=== PATIENT | female | born 1985 | race Two or more races ===

== ENCOUNTER 2018-10-31 11:46 | Emergency (ER) | payer MEDICAID, OTHER ==
[~2018-10-31] VITALS: Ht 160 cm; Wt 61.7 kg
[2018-10-31 12:46] LABS: Urine Bacteria FEW /hpf (None Seen); Urine Blood Negative /uL (Negative); Urine Mucus FEW (None Seen); Urine Specific Gravity 1.022 (1.001-1.035); Urine Sperm PRESENT /hpf (None Seen); Urine WBC 4 /hpf (0 - 5)
[2018-10-31 13:40] LABS: Basophils # (auto) 0 uL; Basophils % (auto) 0.6 % (0.0-2.0); Eosinophils # (auto) 0.1 uL; Eosinophils % (auto) 1.5 % (0.0-7.0); Hematocrit 40.2 % (36.0-46.0); Hemoglobin 13.8 g/dL (12.2-16.2); Lymphocytes # (auto) 2.8 uL; Lymphocytes % (auto) 37.9 % (10.0-50.0); Mean Corpuscular Hemoglobin 31.2 pg (28.0-32.0); Mean Corpuscular Hgb Conc. 34.2 g/dL (32.0-36.0); Mean Corpuscular Volume 91.1 fL (80.0-100.0); Monocytes # (auto) 0.4 uL; Neutrophils # (auto) 4.1 uL; Nucleated Red Blood Cells % 0.1 %; Platelet Count (auto) 300 10^3/uL (140-450); Red Blood Cells 4.41 10^6/uL (4.0-5.20); Red Cell Distribution Width 12.6 % (11.8-14.3); White Blood Cell 7.5 10^3/uL (4.4-10.8)
[2018-10-31 14:03] LABS: Alanine Aminotransferase 23 U/L (13-56); Amylase 163 U/L (25-115); Anion Gap 3 (5-15); Blood Urea Nitrogen 13 mg/dL (7-18); Calcium 8.6 mg/dL (8.5-10.1); Carbon Dioxide 27 mmol/L (21-32); Chloride 108 mmol/L (98-107); Glucose 88 mg/dL (74-106); Lipase 177 U/L (73-393); Potassium 4.2 mmol/L (3.5-5.1); Sodium 138 mmol/L (136-145)
[2018-10-31 14:06] LABS: Alkaline Phosphatase 53 U/L (45-117); Aspartate Aminotransferase 13 U/L (15-37); Bilirubin, Total 0.2 mg/dL (0.2-1.0); GFR African American > 60 mL/min; GFR Non-African American > 60 mL/min; Total Protein 7.7 g/dL (6.4-8.2)
[2018-10-31 15:29] VITALS: BP 132/73
[2018-10-31] MEDS ORDERED: ONDANSETRON ODT 4 MG TAB PO ONE (15:45)
[2018-10-31] MEDS ORDERED: KETOROLAC TROMETH 60MG/2ML VIAL IM ONE (15:45)
== END 2018-10-31 17:19 | disposition home or self-care (01) ==
LOC: ER 11:47
DX: N20.0 Calculus of kidney (principal); N39.0 Urinary tract infection, site not specified; R11.0 Nausea
CPT/HCPCS: 36415; 74176; 80053; 81001; 81025; 82150; 83690; 85025; 96372; 99284; J1885; Q0162

== ENCOUNTER 2019-09-02 22:35 | Inpatient (IN) | payer MEDICAID ==
[~2019-09-02] VITALS: Ht 160 cm; Wt 76.7 kg
[2019-09-02] MEDS ORDERED: LACT. RINGERS/OXYTOCIN 20UNITS 1,000 ML IV SCH (23:14)
[2019-09-02] MEDS ORDERED: LACTATED RINGER'S 1,000 ML IV SCH (23:14)
[2019-09-02] MEDS ORDERED: DERMOPLAST 60ML BOTTLE TOP PRN (23:15)
[2019-09-02] MEDS ORDERED: CARBOPROST TROMETHAMINE 250 MCG/1ML VIAL IM PRN (23:15)
[2019-09-02] MEDS ORDERED: METHYLERGONOVINE MALEATE 0.2 MG/ML AMP IM PRN (23:15)
[2019-09-02] MEDS ORDERED: WITCH HAZEL-GLYCERIN PAD TOP PRN (23:15)
[2019-09-02] MEDS ORDERED: PHISODERM TOP SOLN 240ML BTL TOP PRN (23:15)
[2019-09-02] MEDS ORDERED: LIDOCAINE 2%HCL (LOCAL ANESTH.) INJ 20ML MDV ID ONE (23:15)
[2019-09-02] MEDS ORDERED: NALBUPHINE HCL 10 MG/1ml INJECTION IV PRN (23:15)
[2019-09-02 23:57] LABS: Basophils # (auto) 0 uL; Basophils % (auto) 0.6 % (0.0-2.0); Eosinophils # (auto) 0.1 uL; Eosinophils % (auto) 0.9 % (0.0-7.0); Hematocrit 34.4 % (36.0-46.0); Hemoglobin 11.7 g/dL (12.2-16.2); Lymphocytes # (auto) 2.4 uL; Lymphocytes % (auto) 34.5 % (10.0-50.0); Mean Corpuscular Hemoglobin 30.6 pg (28.0-32.0); Mean Corpuscular Hgb Conc. 34.2 g/dL (32.0-36.0); Mean Corpuscular Volume 89.4 fL (80.0-100.0); Monocytes # (auto) 0.5 uL; Monocytes % (auto) 7.8 % (0.0-12.0); Neutrophils % (auto) 56.2 % (37.0-80.0); Nucleated Red Blood Cells % 0.1 %; Platelet Count (auto) 224 10^3/uL (140-450); Red Blood Cells 3.84 10^6/uL (4.0-5.20); Red Cell Distribution Width 14.1 % (11.8-14.3); White Blood Cell 7.1 10^3/uL (4.4-10.8)
[2019-09-03] VITALS (17 sets, daily range): BP systolic 107–138; BP diastolic 61–84
[2019-09-03 00:10] LABS: INR 0.92 (0.9-1.15); Partial Thromboplastin Time 24.9 sec (23.64-32.05)
[2019-09-03 00:11] LABS: Albumin 2.5 g/dL (3.4-5.0); Potassium 4.2 mmol/L (3.5-5.1); Uric Acid 3.7 mg/dL (2.6-6.0)
[2019-09-03 00:14] LABS: BUN/Creatinine Ratio 18.5; Bilirubin, Total 0.1 mg/dL (0.2-1.0); Total Protein 6.1 g/dL (6.4-8.2)
[2019-09-03 00:17] LABS: Urine Bacteria NONE SEEN /hpf (None Seen); Urine Blood Negative /uL (Negative); Urine Mucus FEW (None Seen); Urine Specific Gravity 1.018 (1.001-1.035); Urine WBC 1 /hpf (0 - 5)
[2019-09-03 00:23] LABS: Alcohol, Urine < 3.0 mg/dL (0-5); Amphetamine Screen, Urine NEGATIVE (NEGATIVE); Barbiturate Scree,Urine NEGATIVE (NEGATIVE); Benzodiazephine Screen, Urine NEGATIVE (NEGATIVE); Cannabinoid Screen, Urine NEGATIVE (NEGATIVE); Cocaine Screen, Urine NEGATIVE (NEGATIVE); Phencyclidine Screen, Urine NEGATIVE (NEGATIVE)
[2019-09-03 00:26] LABS: Opiate Scree,Urine NEGATIVE (NEGATIVE)
[2019-09-03] MEDS ORDERED: TETRACAINE 1% INJ 2 ML VIAL IJ ONE (00:34)
[2019-09-03] MEDS ORDERED: MORPHINE SULF(PF) 0.5MG/ML 10ML VIAL ONE (00:36)
[2019-09-03] MEDS ORDERED: PHENYLEPHRINE HCL 10 MG/ML VL ONE (00:37)
[2019-09-03] MEDS ORDERED: ePHEDrine SULFATE 50 MG/ML AMP ONE (00:37)
[2019-09-03] MEDS ORDERED: ceFAZolin 1GM VL ONE (00:37)
[2019-09-03] MEDS ORDERED: OXYTOCIN 10 UNIT/ML 10ML VIAL ONE (00:39)
[2019-09-03] MEDS ORDERED: NALOXONE HCL 0.4 MG/ML VIAL IV PRN ×2 (00:45→01:30)
[2019-09-03] MEDS ORDERED: ONDANSETRON HCL 4 MG/2 ML VIAL IV PRN ×3 (00:45→01:30)
[2019-09-03] MEDS ORDERED: HYDROmorphone HCL 2 MG/ML VL IV PRN (00:45)
[2019-09-03] MEDS ORDERED: METOCLOPRAMIDE HCL 5MG/ml INJ 2ml VIAL ONE (01:11)
[2019-09-03] MEDS ORDERED: MIDAZOLAM HCL 1MG/1ML-2 ML VIAL ONE (01:13)
[2019-09-03] MEDS: LACT. RINGERS/OXYTOCIN 20UNITS 1,000 ML IV SCH ×2 (01:24→09:02)
[2019-09-03] MEDS ORDERED: KETOROLAC TROMETH 30 MG/ML 1ML VIAL IV PRN (01:30)
[2019-09-03] MEDS ORDERED: diphenhdrAMINE HCL 50 MG/1 ML VL IV PRN (01:30)
[2019-09-03] MEDS ORDERED: MORPHINE SULFATE 4 MG/ML SYR/VIAL IV PRN (01:30)
[2019-09-03] MEDS ORDERED: ceFAZolin 1GM/50ML 50 ML IV SCH (01:30)
[2019-09-03] MEDS ORDERED: ACETAMINOPHEN IV 100 ML IV ONE (02:39)
[2019-09-03] MEDS ORDERED: ACETAMINOPHEN IV 1000 MG/100ML (10MG/ML) IV PRN ×2 (02:45→03:30)
[2019-09-03] MEDS: ceFAZolin 1GM/50ML 50 ML IV SCH ×2 (09:02→17:14)
[2019-09-03] MEDS ORDERED: ACETAMINOPHEN IV 1000 MG/100ML (10MG/ML) IV ONE (09:30)
[2019-09-03] MEDS ORDERED: MORPHINE SULF INJ 2 MG/ML SYRINGE 1ML IV PRN (09:30)
[2019-09-03] MEDS ORDERED: LACTATED RINGER'S 1,000 ML IV ONE (17:15)
[2019-09-03] MEDS ORDERED: HYDROcodone-ACET 5/325MG TAB PO PRN (19:00)
[2019-09-03 19:02] LABS: Basophils # (auto) 0 uL; Basophils % (auto) 0.3 % (0.0-2.0); Eosinophils # (auto) 0 uL; Eosinophils % (auto) 0.3 % (0.0-7.0); Hematocrit 36.7 % (36.0-46.0); Hemoglobin 12.4 g/dL (12.2-16.2); Lymphocytes # (auto) 1.4 uL; Lymphocytes % (auto) 12.9 % (10.0-50.0); Mean Corpuscular Hemoglobin 30.6 pg (28.0-32.0); Mean Corpuscular Hgb Conc. 33.8 g/dL (32.0-36.0); Mean Corpuscular Volume 90.5 fL (80.0-100.0); Monocytes # (auto) 0.6 uL; Monocytes % (auto) 5.4 % (0.0-12.0); Neutrophils # (auto) 8.8 uL; Neutrophils % (auto) 81.1 % (37.0-80.0); Platelet Count (auto) 200 10^3/uL (140-450); Red Blood Cells 4.06 10^6/uL (4.0-5.20); Red Cell Distribution Width 14.9 % (11.8-14.3); White Blood Cell 10.8 10^3/uL (4.4-10.8)
[2019-09-03] MEDS ORDERED: ACETAMINOPHEN/CODEINE#3 (300/30mg) TAB PO PRN (19:30)
[2019-09-03] MEDS ORDERED: MEPERIDINE HCL (50 MG/ML) 1 ML VIAL IV PRN (19:45)
[2019-09-04] MEDS: IBUPROFEN 800 MG TAB PO PRN ×3 (01:35→18:07)
[2019-09-04 03:00] VITALS: BP 125/66
[2019-09-04] MEDS ORDERED: PREN-96 PO (06:23)
[2019-09-04 06:42] VITALS: BP 126/77
[2019-09-04 06:54] LABS: Basophils # (auto) 0.1 uL; Basophils % (auto) 0.5 % (0.0-2.0); Eosinophils # (auto) 0.1 uL; Eosinophils % (auto) 0.9 % (0.0-7.0); Hematocrit 36.4 % (36.0-46.0); Hemoglobin 12.2 g/dL (12.2-16.2); Lymphocytes # (auto) 1.8 uL; Lymphocytes % (auto) 17.3 % (10.0-50.0); Mean Corpuscular Hgb Conc. 33.6 g/dL (32.0-36.0); Mean Corpuscular Volume 89.3 fL (80.0-100.0); Monocytes # (auto) 0.5 uL; Monocytes % (auto) 5.3 % (0.0-12.0); Neutrophils # (auto) 7.7 uL; Platelet Count (auto) 216 10^3/uL (140-450); Red Blood Cells 4.07 10^6/uL (4.0-5.20); Red Cell Distribution Width 14.8 % (11.8-14.3); White Blood Cell 10.1 10^3/uL (4.4-10.8)
[2019-09-04 07:06] LABS: RPR Non Reactive (Non Reactive)
[2019-09-04] MEDS ORDERED: MEPERIDINE HCL (50 MG/ML) 1 ML VIAL IM PRN (08:15)
[2019-09-04] MEDS: SIMETHICONE 80 MG CHEWABLE TABLET PO PRN ×2 (09:48→18:07)
[2019-09-04] MEDS: DOCUSATE SOD 100 MG CAP PO SCH ×2 (09:48→22:52)
[2019-09-04] MEDS ORDERED: ACETAMINOPHEN 325 MG TAB PO PRN (10:00)
[2019-09-04 10:50] VITALS: BP 129/86
[2019-09-04] MEDS: traMADol HCL 50 MG TAB PO PRN ×2 (13:13→20:06)
[2019-09-04 15:10] VITALS: BP 118/83
[2019-09-04 22:00] VITALS: BP 141/82
[2019-09-04 23:00] VITALS: BP 141/82
[2019-09-05 03:18] VITALS: BP 121/68
[2019-09-05 07:00] VITALS: BP 136/81
[2019-09-05] MEDS: IBUPROFEN 800 MG TAB PO PRN ×2 (07:25→15:32)
[2019-09-05] MEDS: DOCUSATE SOD 100 MG CAP PO SCH ×2 (09:31→21:49)
[2019-09-05 11:00] VITALS: BP 135/85
[2019-09-05 15:00] VITALS: BP 144/87
[2019-09-05] MEDS ORDERED: TETANUS-DIPTH-ACEL PERTUSSIS 0.5ML SYRG IM ONE (15:15)
[2019-09-05] MEDS ORDERED: INFLUENZA QUAD 2019-2020 0.5ml SYRG IM ONE (15:15)
[2019-09-05 19:30] VITALS: BP 137/82
[2019-09-05] MEDS: traMADol HCL 50 MG TAB PO PRN (21:49)
[2019-09-05 23:18] VITALS: BP 146/85
[2019-09-06 03:10] VITALS: BP 121/75
[2019-09-06] MEDS: IBUPROFEN 800 MG TAB PO PRN (03:27)
[2019-09-06 06:32] VITALS: BP 120/90
[2019-09-06] MEDS: DOCUSATE SOD 100 MG CAP PO SCH (08:59)
[2019-09-06] MEDS: traMADol HCL 50 MG TAB PO PRN (08:59)
[2019-09-06 11:00] VITALS: BP 136/81
== END 2019-09-06 11:25 | disposition home or self-care (01) | DRG 540 ==
LOC: LDRP 22:35 → OBSVTOIN 23:07 → LDRP 09-03 23:41
PROVIDERS: ADMIT Obstetrics & Gynecology; ATTEND Obstetrics & Gynecology
PROC: 0UL70CZ Occlusion of Bilateral Fallopian Tubes with Extraluminal Device, Open Approach (ICD-10-PCS; 2019-09-03)
PROC: 10D00Z1 Extraction of Products of Conception, Low, Open Approach (ICD-10-PCS; principal; 2019-09-03 00:37)
DX: O76 Abnormality in fetal heart rate and rhythm complicating labor and delivery (principal); O24.429 Gestational diabetes mellitus in childbirth, unspecified control; O69.81X0 Labor and delivery complicated by cord around neck, without compression, not applicable or unspecified; O32.3XX0 Maternal care for face, brow and chin presentation, not applicable or unspecified; Z3A.38 38 weeks gestation of pregnancy; Z30.2 Encounter for sterilization; Z37.0 Single live birth; Z88.8 Allergy status to other drugs, medicaments and biological substances
CPT/HCPCS: 36415; 51702; 59025; 76815; 80053; 80307; 81001; 81002; 82962; 84112; 84550; 85025; 85610; 85730; 86592; 86850; 86900; 86901; 90715; 96361; 96365; 96366; 96372; G0378; J0131; J0690; J2250; J2590

== ENCOUNTER 2020-09-07 16:29 | Emergency (ER) | payer MEDICAID ==
[~2020-09-07 16:29] MED LIST: PREN-96 PO
== END 2020-09-07 19:50 | disposition left against medical advice (07) ==
LOC: ER 16:29
DX: R10.9 Unspecified abdominal pain (principal); Z53.21 Procedure and treatment not carried out due to patient leaving prior to being seen by health care provider

== ENCOUNTER 2021-03-14 11:06 | Emergency (ER) | payer MEDICAID ==
[~2021-03-14] VITALS: Ht 160 cm; Wt 61.2 kg
[2021-03-14] MEDS ORDERED: ONDANSETRON HCL 4 MG/2 ML VIAL IV ONE (11:30)
[2021-03-14] MEDS ORDERED: SODIUM CHLORIDE 0.9% 1,000 ML IVB ONE (11:30)
[2021-03-14] MEDS ORDERED: KETOROLAC TROMETH 30 MG/ML 1ML VIAL IV ONE (11:30)
[2021-03-14 11:33] LABS: Hematocrit 37.1 % (36.0-46.0); Hemoglobin 12.5 g/dL (12.2-16.2); Mean Corpuscular Hemoglobin 29.2 pg (28.0-32.0); Mean Corpuscular Hgb Conc. 33.6 g/dL (32.0-36.0); Mean Corpuscular Volume 86.9 fL (80.0-100.0); Platelet Count (auto) 354 10^3/uL (140-450); Red Blood Cells 4.27 10^6/uL (4.0-5.20); Red Cell Distribution Width 14.8 % (11.8-14.3); White Blood Cell 14.2 10^3/uL (4.4-10.8)
[2021-03-14 11:34] LABS: Band Neutrophils % (manual) 0; Basophils % (manual) 0 (0.0-2.0); Blast Cells 0; Eosinophils % (manual) 0 (0-7); Metamyelocytes % 0; Myelocytes % 0; Promyelocytes % 0; Reactive Lymphocytes 0
[2021-03-14 11:53] LABS: Calcium 8.7 mg/dL (8.5-10.1); Potassium 4.6 mmol/L (3.5-5.1)
[2021-03-14 11:54] LABS: Lymphocytes % (manual) 57 (10.0-50.0); Monocytes % (manual) 8 (0-12)
[2021-03-14 11:59] LABS: Albumin 3.9 g/dL (3.4-5.0); BUN/Creatinine Ratio 20.7; Bilirubin, Total 0.4 mg/dL (0.2-1.0); Total Protein 7.8 g/dL (6.4-8.2)
[2021-03-14 12:05] LABS: Urine WBC None Seen /hpf (0 - 5)
[2021-03-14 12:22] LABS: Urine Bacteria NONE SEEN /hpf (None Seen); Urine Blood Negative /uL (Negative); Urine Specific Gravity 1.017 (1.001-1.035)
[2021-03-14 12:24] VITALS: BP 111/69
== END 2021-03-14 13:50 | disposition home or self-care (01) ==
LOC: ER 11:06
DX: R10.31 Right lower quadrant pain (principal); K21.9 Gastro-esophageal reflux disease without esophagitis; Z32.02 Encounter for pregnancy test, result negative; Z87.442 Personal history of urinary calculi; Z88.2 Allergy status to sulfonamides; Z88.6 Allergy status to analgesic agent
CPT/HCPCS: 36415; 74176; 80053; 81001; 81025; 83690; 85007; 85027; 96361; 96374; 96375; 99284; J1885; J2405; J7030

== ENCOUNTER → 2021-05-22 | Outpatient (CLI) | payer MEDICAID ==
[2021-05-22 16:58] LABS: Urine Bacteria NONE SEEN /hpf (None Seen); Urine Blood Negative /uL (Negative); Urine Specific Gravity 1.019 (1.001-1.035); Urine WBC 16 /hpf (0 - 5)
== END | disposition home or self-care (01) ==
LOC: LAB 16:40
PROVIDERS: ATTEND Internal Medicine Nephrology
DX: N39.0 Urinary tract infection, site not specified (principal)
CPT/HCPCS: 81001; 87086